=== PATIENT | female | born 1975 | race African-American/Black ===

== ENCOUNTER 2022-12-12 14:46 | Emergency (ER) | payer OTHER ==
--- OUTSIDE RECORDS SUMMARY | 2022-12-12 14:51 | XMS REPORT | Continuity of Care Document ---
:1975 Author Organization [facility] t Address [address] [facility] [address] [place] [address] Care Team Providers Name Role Phone No, Pcp [facility] Primary Care Physician Unavailable MONIKA Attending Clinician Unavailable Merrill GARCIA, Jacqueline Holloway Attending Clinician Yousuf Yoo Attending Clinician Ty Tabares Attending Clinician Sarkis Webber Attending Clinician HARPER MURRAY Attending Clinician Unavailable MONIKA Admitting Clinician Unavailable MD JACQUELINE GAMEZ Admitting Clinician Unavailable Yousuf Yoo Admitting Clinician Payers Payer Name Policy Type Policy Number Effective Date Expiration Date S ource Problems Condition Condition Condition Status Onset Resolution Last Treating Co mments Source Name Details Category Date Date Treatment Clinician Date [address], 12119, Diagnosis Active 2018-03-29 Me moria REFLUX REFLUX 7-13 11:28:00 l Active 00:00: Rah 02/23/[address] [place] [address] NA NA Active Diagnosis Active 2018-02-02 Memoria 01/03/201801-03 13:32:00 l 00:00: [address] [address], [id number], Diagnosis Active 2017-12-08 Jayjay barahonarisaurav REFLUX REFLUX 11-29 07:44:00 l Active 00:00: [place] 11/29/2017 00 [facility] BARIATRIC BARIATRIC Diagnosis Active 2017-12-22 Memoria FOLLOW UP FOLLOW UP 11-24 14:53:00 l Active 00:00: Rah 11/24/2017 00 [facility] BARIATRIC BARIATRIC Diagnosis Active 2017-11-24 Memoria FOLLOW UP FOLLOW UP 11-01 15:57:00 l Active 00:00: Rah 11/01/2017 00 [facility] MORBID MORBID Diagnosis Active 2017-11-01 Me olivera OBESITY-E6 OBESITY-E6 10-20 13:26:00 l 6.01/ 6.01/ 00:00: Rah K21.9 / K21.9 / 00 I10 I10 Active 10/20/2017 [facility] Body mass Body Problem 2018-10-18 Me olivera index mass index 12:08:22 l (BMI) (BMI) Rah 36.0-36.9, 36.0-36.9, adult adult 10/18/2018 [facility] Essential Essential Problem 2018-10-18 Memoria (primary) (primary) 12:08:22 l hypertensi hypertensi Trevor rmann on on 10/18/2018 [facility] Gastro-eso Gastro-es Problem 2018-10-18 Memoria phageal ophageal 12:08:22 l reflux reflux [place] disease disease without without esophagiti esophagiti s s 10/18/2018 [facility] Type 2 Type 2 Problem 2018-10-18 Vijay maximus diabetes diabetes 12:08:22 l mellitus mellitus Jeffery n without without complicati complicati ons ons 10/18/2018 [facility] Benign Benign Problem Resolve 2020-05-01 Or moria essential essential d 22:20:27 l hypertensi hypertensi He rmann on on (disorder) (disorder) Resolved Problem 05/01/2020 [facility] Diabetes Diabetes Problem Resolve 2020-05-01 Memoria mellitus mellitus d 22:20:27 l (disorder) (disorder) He rmann Resolved Problem 05/01/2020 [facility] History of History Problem Active 2020-05-01 Memoria - surgery of - 22:20:27 l (context-d surgery Kalpana nn ependent (context-d category) ependent category) Active Problem 05/01/2020 [facility] ILLNESS, ILLNESS, Diagnosis Active 2018-03-29 Memoria UNSPECIFIE UNSPECIFIE 11:28:00 l D D Active [place] [facility] History of Past Illness Condition Condition Condition Status Onset Resolution Last Treating Co mments Source Name Details Category Date Date Treatment Clinician Date Morbid Morbid Problem 2018-10-18 2018-10-18 Memoria (severe) (severe) 04-24 12:08:22 12:08:22 l obesity obesity 04:09: Rah due to due to 48 excess excess calories calories 04/24/2018 10/18/2018 [facility] Headache Headache Problem 2018-01-03 2018-01-03 Memoria 12/31/201712-31 00:29:39 00:29:39 l 01/03/2018 05:00: Jeffery [place] [address] [place] Allergies, Adverse Reactions, Alerts Allergy Allergy Status Severity Reaction(s) Onset Inactive Treating Comm ents Source Name Type Date Date Clinician No Known No Known Active Memori a Medicati Medicati l on on Rah Allergie Allergie s s Social History Social Habit Start Date Stop Date Quantity Comments Source Gender identity [facility] Tobacco use and 2022-02-02 2022-02-02 Smokeless Religion exposure 00:00:00 00:00:00 tobacco non-user Hospital Alcohol intake 2022-02-02 2022-02-02 Ex-drinker Religion 00:00:00 00:00:00 (finding) Hospital History of Social 2022-02-02 2022-02-[address] function 00:00:00 00:00:00 Hospital Sex Ass[birth year] At [birth year] Religion 00:00:00 00:00:00 Hospital Smoking Status Start Date Stop Date Source Social History [facility] Medications Ordered Filled Start Stop Current Ordering Indication Dosage Frequency Signature Comments Components Source Medication Medication Date Date Medication? Clinician (SIG) Name Name amoxicillin 2021- No 1{tbl} Q12H Take 1 M ethodi -pot 02-[address] clavulanate 00:00: 04:59 mouth Hosp aidan (AUGMENTIN) 00 :00 every 12 l 875-125 mg (twelve) per tablet hours for 7 days. Calcium Yes PO, BID, 0 Vijay maximus Citrate 04-15 Refill(s) l 18:51: multivitami 2019-0 Yes Daily, 0 Me moria n 902 Refill(s) l 18:51: Vitamin D3 Yes 0 Memoria 04-15 Refill(s) l 18:51: Metoclopram No 10 mg = 1 M emoria kayla 10 MG 8-18 tab, PO, l Oral Tablet 14:53: QID, PRN He rmann [Reglan] 00 dysphagia, X 7 day, # 28 tab, 0 Refill(s) pantoprazol Yes 40 mg = 1 M emoria e 40 MG 8-18 tab, PO, l Enteric 14:43: Daily, # Jeffery n Coated 00 30 tab, 1 Tablet Refill(s) [Protonix] Reglan No Notes: Memoria 8-18 (Same as: l 01:00: Reglan) Protonix No Notes: For Mem oria 03-30 IV push l 14:00: reconstitu te with 10 ml 0.9% sodium chloride and push over 2 minutes. (Same as: Protonix) Lactated No 1,000 mL, Vijay maximus Ringers 03-30 Rate: 80 l Injection 12:00: ml/hr, Jeffery n IV 1,000 mL 00 Infuse over: 12.5 hr, Route: IV, Dosing Weight 94.091 kg, Total Volume: 1,000, Start date: 03/30/18 7:00:00 CDT, Duration: 30 day, Stop date: 04/29/18 6:59:00 CDT, 2.12, m2 tramadol No 50 mg = 1 Vijay maximus hydrochlori 8-17 tab, PO, l de 50 MG 11:23: Q4H, PRN Kalpana nn Oral Tablet 00 Pain Score 1-3, X 3 day, # 20 tab, 0 Refill(s) Ketorolac No 4 days Memor ia 8-16 l 20:00: MEDICATION WASTE Product Size: 30 mg Product Wasted: ___ mg Ofirmev 2018-0 No Notes: Memoria 8-16 Infuse l 19:00: over 15 [place] 00 minutes Do not exceed 4gm/day of acetaminop hen MEDICATION WASTE Product Size: 1000 mg Product Wasted: ___ mg Morphine 2018-0 No 4 mg, Memoria 03-29 Route: l 15:03: IVP, [place] 00 Q5Min, Dosing Weight 94.091, kg, PRN Pain Score 7-10, Start date: 03/29/18 10:03:00 CDT, Duration: 3 doses or times, Stop date: Limited # of times Labetalol 2018-0 No 10 mg, Memori a 03-29 Route: l 15:03: IVP, [place] 00 Q5Min, Dosing Weight 94.091, kg, PRN Elevated BP, Start date: 03/29/18 10:03:00 CDT, Duration: 5 doses or times, Stop date: Limited # of times Flumazenil 2018-0 No 0.2 mg, Vijay maximus 03-29 Route: l 15:03: IVP, PRN, Rah 00 Dosing Weight 94.091, kg, PRN Benzodiaze pine Reversal, Initial dose, Start date: 03/29/18 10:03:00 CDT, Duration: 30 day, Stop date: 04/28/18 10:02:00 CDT Hydralazine 2018-0 No 10 mg, Vijay maximus 03-29 Route: l 15:03: IVP, Rah 00 Q20Min, Dosing Weight 94.091, kg, PRN Elevated BP, Start date: 03/29/18 10:03:00 CDT, Duration: 2 doses or times, Stop date: Limited # of times Hydromorpho 2018-0 No 0.5 mg, Mem oria ne 03-29 Route: l 15:03: IVP, Rah 00 Q5Min, Dosing Weight 94.091, kg, PRN Pain Score 7-10, Start date: 03/29/18 10:03:00 CDT, Duration: 4 doses or times, Stop date: Limited # of times Naloxone 2018-0 No 0.4 mg, Memori a 03-29 Route: l 15:03: IVP, [place] 00 Q2MIN, Dosing Weight 94.091, kg, PRN Narcotic Reversal, Start date: 03/29/18 10:03:00 CDT, Duration: 8 doses or times, Stop date: Limited # of times Ondansetron No 4 mg, Memor ia 03-29 Route: l 15:03: IVP, ONCE, Dosing Weight 94.091, kg, PRN Nausea & Vomiting, Start date: 03/29/18 10:03:00 CDT Lovenox 2017-0 No Notes: Memoria 03-29 (Same as: l 15:00: Lovenox) ketOROLAC No IM, ONCE Vijay maximus (ANES) 03-29 l 14:45: sugammadex No Route: IV, M emoria (ANES) 03-29 Drug form: l 14:45: SOLN, ONCE, Stop date: 03/29/18 9:45:00 CDT neostigmine No Route: IV, Memoria (ANES) 03-29 Drug form: l 14:45: INJ, ONCE, Stop date: 03/29/18 9:45:00 CDT meperidine No Route: IM, M emoria (ANES) 03-29 Drug form: l 14:45: INJ, ONCE, Stop date: 03/29/18 9:45:00 CDT glycopyrrol No Route: IV, Memoria ate (ANES) 03-29 Drug form: l 14:45: INJ, ONCE, Stop date: 03/29/18 9:45:00 CDT Labetalol No Notes: Memori a 03-29 (Same as: l 14:44: Normodyne, Trandate) Push over 2 minutes Give bolus over 2-3 minutes. Morphine No Notes: Memoria 03-29 (Same l 14:44: as:MORPhin e Sulfate) tramadol No Notes: Not Mem oria hydrochlori 03-29 to exceed l de 50 MG 14:44: 400mg/day. Her garcia Oral Tablet 00 (Same As: Ultram) Hydralazine No Notes: Vijay maximus 8-16 (Same as: l 14:44: Apresoline ) Push over 5 minutes Ondansetron No Notes: Vijay maximus 8-16 (Same as: l 14:44: Zofran) MEDICATION WASTE Product Size: 4 mg Product Wasted: ___ mg Promethazin No 12.5 mg, Me moria e 8-16 50 mL, l 14:44: Route: 00 IVPB, Drug form: SOLN, Q6H, Dosing Weight 94.091, kg, PRN Nausea & Vomiting, Start date: 03/29/18 9:44:00 CDT, Duration: 30 day, Stop date: 04/28/18 9:43:00 CDT Calcium No 1,000 mL, Memor ia Chloride 03-29 Rate: 150 l 0.0014 14:44: ml/hr, MEQ/ML / 00 Infuse Potassium over: 6.7 Chloride hr, Route: 0.004 IV, Dosing MEQ/ML / Weight Sodium 94.091 kg, Chloride Total 0.103 Volume: MEQ/ML / 1,000, Sodium Start Lactate date: 0.028 03/29/18 MEQ/ML 9:44:00 Injectable CDT, Stop Solution date: 03/30/18 7:00:00 CDT, 2.12, m2 ondansetron No Route: IV, Memoria (ANES) 8-16 Drug form: l 14:33: INJ, ONCE, Stop date: 03/29/18 9:33:00 CDT succinylcho No Route: IV, Memoria line (ANES) 8-16 Drug form: l 14:33: INJ, ONCE, Stop date: 03/29/18 9:33:00 CDT dexamethaso No Route: IV, Memoria ne (ANES) 8-16 Drug form: l 14:33: INJ, ONCE, Stop date: 03/29/18 9:33:00 CDT ceFAZolin No Route: IV, Me moria (ANES) 8-16 Drug form: l 14:18: INJ, ONCE, Stop date: 03/29/18 9:18:00 CDT rocuronium 2017-0 No Route: IV, M emoria (ANES) 03-29 Drug form: l 14:03: INJ, ONCE, Stop date: 03/29/18 9:03:00 CDT lidocaine 2018-0 No Route: IV, Me moria (ANES) 03-29 Drug form: l 14:03: INJ, ONCE, Stop date: 03/29/18 9:03:00 CDT propofol 2018-0 No Route: IV, Mem oria (ANES) 03-29 Drug form: l 14:03: INJ, ONCE, Stop date: 03/29/18 9:03:00 CDT midazolam 2017-0 No Route: IV, Me moria (ANES) 03-29 Drug form: l 13:58: SOLN, ONCE, Stop date: 03/29/18 8:58:00 CDT fentaNYL 0 No Route: IV, Mem oria (ANES) 03-29 Drug form: l 13:58: INJ, ONCE, Stop date: 03/29/18 8:58:00 CDT acetaminoph No Route: IV, Memoria en (ANES) 03-29 Drug form: l 10 mg 12:30: INJ, Start Jeffery n date: 03/29/18 7:30:00 CDT, Stop date: 03/29/18 8:30:00 CDT Sodium 0 No Route: IV, Memor ia Chloride 03-29 Total l 0.9% IV 12:30: Volume: Rah (ANES) 1000 00 1,000, mL Start date: 03/29/18 7:30:00 CDT, Stop date: 03/29/18 8:30:00 CDT Zofran ODT 0 No 4 mg, Memori a 03-29 Route: PO, l 12:12: Drug form: TABDIS, ONCE, Dosing Weight 94.091, kg, Start date: 03/29/18 7:12:00 CDT, Stop date: 03/29/18 7:12:00 CDT Bupivacaine 2017-0 No Notes: Vijay maximus Hydrochlori 03-29 (bupivacai l de 2.5 12:09: ne-epi [place] MG/ML / 00 0.25%-1:20 Epinephrine 0,000 30 0.005 MG/ML mL VL PF) Injectable Not for Solution use in continuous infusion. (Same As: Marcaine MPF w/Epi PF, Sensorcain e MPF w/Epi PF) ceFAZolin No Notes: Memori a 16 (Same As: l 06:00: Ancef) [place] 00 Inject direct IV slowly over 5 minutes. Cefazolin 1gm in sterile water 10mL Metformin No 1,000 mg = Me moria hydrochlori 03-26 1 tab, PO, l de 1000 MG 19:01: BID-Meals, H ermann Oral Tablet 00 # 30 tab, 0 Refill(s) Acetaminoph Yes 1 tab, PO, Memoria en 300 MG / 5-20 Q6H, PRN l Codeine 10:55: Pain, do Jeffery n Phosphate [address] 30 MG Oral or operate Tablet heavy [Tylenol machinery with while Codeine #3] taking this medication not to exceed 4000 mg acetaminop hen per day, # 12 tab, 0 Refill(s) Zofran No Notes: Memoria 5-20 (Same as: l 09:28: Zofran) MEDICATION WASTE Product Size: 4 mg Product Wasted: ___ mg Morphine No Notes: Memoria 5-20 (Same l 09:27: as:MORPhin 00 e Sulfate) Benadryl No Notes: Memoria 5-20 (Same as: l 08:06: Benadryl) Reglan No 10 mg, Memoria 5-20 Route: l 08:06: IVP, Drug form: INJ, ONCE, Dosing Weight 96.563, kg, Priority: STAT, Start date: 12/31/17 3:06:00 CDT, Stop date: 12/31/17 3:06:00 CDT Sodium No 1,000 mL, Memori a Chloride 5-20 1000 l 0.9% 08:06: ml/hr, Rah (Bolus) IV 00 Infuse Over: 1 hr, Route: IV, 1,000, Drug form: INJ, ONCE, Priority: STAT, Dosing Weight 96.563 kg, Start date: 12/31/17 3:06:00 CDT, Stop date: 12/31/17 3:06:00 CDT Saline 2017-0 No Notes: Memoria Flush 0.9% 5-20 (Same as: l 08:06: BD Rah 00 Posiflush) Vital Signs Vital Name Observation Time Observation Value Comments Source Systolic blood 2022-02-02 21:43:00 129 mm[Hg] [facility] pressure Diastolic blood 2022-02-02 21:43:00 76 mm[Hg] [facility] pressure Heart rate 2022-02-02 21:43:00 64 /min [facility] Oxygen saturation in 2022-02-02 21:43:00 100 /min [facility] Arterial blood by Pulse oximetry Body temperature 2022-02-02 19:39:12 36.94 Ernestine [facility] Respiratory rate 2022-02-02 19:39:12 18 /min [facility] Body height 2022-02-02 19:35:00 165.1 cm [facility] Body weight 2022-02-02 19:35:00 76.658 kg [facility] BMI 2022-02-02 19:35:00 28.12 kg/m2 [facility] Height 2020-04-15 18:48:00 162.56 cm [facility] Weight 2020-04-15 18:48:00 [facility] BMI Calculated 2020-04-15 18:48:00 Dipika esteban Rah Systolic (mm Hg) 2019-10-09 20:25:00 Vijay bassett Rah Diastolic (mm Hg) 2019-10-09 20:25:00 Mem orial [place] Heart Rate 2019-10-09 20:25:00 [facility] Height 2019-10-09 20:25:00 162.56 cm [facility] Weight 2019-10-09 20:25:00 [facility] BMI Calculated 2019-10-09 20:25:00 Dipika Holbrook Temperature Oral (F) 2018-03-31 16:20:00 98 F [facility] [place] Heart Rate 2018-03-31 16:20:00 [facility] [place] Respitory Rate 2018-03-31 16:20:00 Memori al [place] Systolic (mm Hg) 2018-03-31 16:20:00 Vijay rial [place] Diastolic (mm Hg) 2018-03-31 16:20:00 Mem orial Rah Systolic (mm Hg) 2018-03-31 12:45:00 Vijay rial [place] Diastolic (mm Hg) 2018-03-31 12:45:00 Mem orial Rah Heart Rate 2018-03-31 12:45:00 [facility] [place] Respitory Rate 2018-03-31 12:45:00 Memori al Rah Temperature Oral (F) 2018-03-31 12:45:00 98 F [facility] [place] Heart Rate 2018-03-31 09:00:00 [facility] Rah Temperature Oral (F) 2018-03-31 09:00:00 98.1 F [facility] [place] Respitory Rate 2018-03-31 09:00:00 Memori al [place] Systolic (mm Hg) 2018-03-31 09:00:00 Vijay rial [place] Diastolic (mm Hg) 2018-03-31 09:00:00 Mem orial Rah Weight 2018-03-26 18:57:00 [facility] [place] BMI Calculated 2018-03-26 18:57:00 Memori al Rah Height 2018-03-26 18:57:00 167.64 cm [facility] [place] Systolic (mm Hg) 2017-12-31 11:09:00 Vijay rial Rah Diastolic (mm Hg) 2017-12-31 11:09:00 Mem orial [place] Temperature Oral (F) 2017-12-31 11:09:00 98.8 F [facility] [place] Heart Rate 2017-12-31 11:09:00 [facility] [place] Respitory Rate 2017-12-31 11:09:00 Memori al [place] Heart Rate 2017-12-31 10:18:00 [facility] [place] Respitory Rate 2017-12-31 10:18:00 Memori al Rah Systolic (mm Hg) 2017-12-31 10:18:00 Vijay rial [place] Diastolic (mm Hg) 2017-12-31 10:18:00 Mem orial [place] Systolic (mm Hg) 2017-12-31 09:38:00 Vijay rial [place] Diastolic (mm Hg) 2017-12-31 09:38:00 Mem orial [place] Respitory Rate 2017-12-31 09:38:00 Dipika Holbrook Heart Rate 2017-12-31 09:38:00 Toño [place] BMI Calculated 2017-12-31 07:57:00 Dipika Holbrook Weight 2017-12-31 07:57:00 Toño Rah Temperature Oral (F) 2017-12-31 07:57:00 97.7 F Toño [place] Height 2017-12-31 07:57:00 167.64 cm [facility] Procedures Procedure Date / Time Performing Clinician Source Performed CT ABDOMEN PELVIS WO 2022-02-02 21:02:00 Jacqueline Gamez [facility] CONTRAST Jewel HCG QUALITATIVE, URINE 2022-02-02 20:40:00 Jacqueline Gamez [facility] SCREEN Jewel COMPREHENSIVE METABOLIC 2022-02-02 20:21:00 Jacqueline Gamez [facility] PANEL Jewel ESTIMATED GFR 2022-02-02 20:21:00 Jacqueline Gamez [facility] COVID-19 QUALITATIVE 2022-02-02 20:00:00 Jacqueline Gamez [facility] RT-PCR Jewel CBC WITH PLATELET AND 2022-02-02 20:00:00 Jacqueline Gamez [facility] DIFFERENTIAL Jewel URINALYSIS 2022-02-02 20:00:00 Jacqueline Gamez [facility]ital [place] Breast reduction, [facility] Kalpana nn bilateral Hysterectomy [facility] Laparoscopic sleeve [facility] Her garcia gastrectomy Plan of Care Planned Activity Planned Date Details Comments Source Future Scheduled 2022-12-12 COVID-19 VACCINE (#1) [facility] Test 14:48:56 [code = COVID-19 VACCINE (#1)] Future Scheduled 2022-12-12 Hepatitis C screening [facility] Test 14:48:56 (procedure) [code = 619606026] Future Scheduled 2022-12-12 Screening for [facility] Test 14:48:56 malignant neoplasm of cervix (procedure) [code = 523755474] Future Scheduled 2022-12-12 BREAST CANCER [facility] Test 14:48:56 SCREENING [code = BREAST CANCER SCREENING] Future Scheduled 2022-12-12 COLONOSCOPY SCREENING [facility] Test 14:48:56 [code = COLONOSCOPY SCREENING] Future Scheduled 2022-12-12 [facility]ACCINE [facility] 14:48:56 [code = INFLUENZA VACCINE] Encounters Start End Encounter Admission Attending Care Care Encounter Source Date/Time Date/Time Type Type Clinicians Facility Department ID 2022-02-23 2022-02-23 Outpatient MARCELINO PAUL [id number] 01:12:00 01:12:00 [place] 0713 da [facility] Program 2022-02-02 2022-02-02 Emergency Gamez, 1.2.840.1 [id number] Methodi 14:33:00 16:45:[address] [place] 3.430.2.7 Hospit a .[id number] l .8 2022-02-02 2022-02-02 Travel 1.2.840.1 [id number] [id number] Methodi 00:00:00 00:00:[address] 3.430.2.7 0.2.7.3.698 Ho spita .3.767912 084.8 l .8 2022-02-02 2022-02-02 Emergency GAMEZ, [facility] [id number] [place] 00:00:00 00:00:00 JACQUELINE 583 Maria lu 2020-04-28 2020-04-29 Between nullFlavo [id number] Memoria 21:31:11 21:31:11 Visit r Physicians 08 l Bariatric Jeffery n Surgery 2020-04-28 2020-04-29 Outpatient [facility] [id number] 16:31:11 16:31:11 08 2020-04-15 2020-04-16 [place] [id number] Memoria 20:00:00 04:59:59 r Physicians 05 rohith Gil n Surgery 2020-04-15 2020-04-15 Outpatient Naila [facility] [id number] 15:00:00 23:59:59 Yousuf Mejía 2020-04-15 2020-04-15 Outpatient DENNY DENNY [id number] Memoria 15:00:00 15:00:00 05 rohith Monreal 2020-04-09 2020-04-09 Ambulatory nullFlavo [id number] Memoria 19:00:00 19:00:00 Pre-Reg r Physicians 04 l Bariatric Jeffery n Surgery 2020-04-09 2020-04-09 Outpatient MHIE MHIE [id number] Memoria 14:00:00 14:00:00 04 l [place] 2020-04-09 2020-04-09 Outpatient Rayshawn [facility] [id number] 14:00:00 14:00:00 Ty 04 2019-10-09 2019-10-10 Outpatient nullFlavo [id number] Memoria 20:00:00 05:59:59 r Physicians 01 l Bariatric Jeffery n Surgery 2019-10-09 2019-10-09 Outpatient Naila [facility] [id number] 14:00:00 23:59:59 Tanyaradrex 01 Kym 2019-10-09 2019-10-09 Outpatient MHIE MHIE [id number] Memoria 14:00:00 14:00:00 01 l [place] 2019-05-10 2019-05-10 Outpatient MHIE MHIE [id number] Memoria 13:30:00 13:30:00 03 l [place] 2019-04-26 2019-04-26 Outpatient MHIE MHIE [id number] Memoria 11:00:00 11:00:00 02 l Rah 2019-04-03 2019-04-03 Outpatient MHIE MHIE [id number] Memoria 16:00:00 16:00:00 00 rohith Monreal 2018-03-29 2018-03-31 Inpatient nullFlavo [facility] [id number] Memoria 13:11:00 21:54:00 r Rah 06 [facility] 2018-03-29 2018-03-31 Outpatient Naila [facility] [id number] 08:11:00 16:54:00 Yousuf 06 Kym 2018-02-02 2018-02-03 Outpatient nullFlavo [facility] [id number] Memoria 18:24:00 04:59:00 r Rah 05 [facility] 2018-02-02 2018-02-02 Outpatient Naila [facility] [id number] 13:24:00 23:59:00 Tanyaxiomara 05 Kym 2017-12-31 2017-12-31 Emergency nullFlavo [facility] [id number] Memoria 07:51:00 11:12:00 r Rah 04 l [place] Kalpana 2017-12-31 2017-12-31 Outpatient Sarkis Webber [facility] [id number] 02:51:00 06:12:00 Josh 04 2017-12-22 2017-12-23 Outpatient nullFlavo [place] [id number] Memoria 19:45:00 04:59:00 r Rah 02 [facility] 2017-12-22 2017-12-22 Outpatient Naila, [facility] [id number] 14:45:00 23:59:00 Tanyaradzwa 02 Kym 2017-12-22 2017-12-22 Outpatient Ruthannse, [facility] [id number] 14:45:00 23:59:00 Tanyaradzwa 02 Kym 2017-11-24 2017-11-25 Outpatient nullFlavo [place] [id number] Memoria 20:49:00 04:59:00 r [place] 01 l [facility] 2017-11-24 2017-11-24 Outpatient Naila, [facility] [id number] 15:49:00 23:59:00 Tanyaradzwa 01 Kym 2017-11-01 2017-11-02 Outpatient nullFlavo [place] [id number] Memoria 18:19:00 04:59:00 r Rah 00 [facility] 2017-11-01 2017-11-01 [id number] 13:19:00 23:59:00 Tanyaradzwa 00 Kym Results Test Description Test Time Test Comments Results Result Comments Source SARS-CoV-2 (COVID-19) RNA [Presence] in Respiratory sp ecimen by 2022-02-03 00:40:10 ROMEO with probe detection Test Item Value Reference Range Interpretation Comme nts SARS-CoV-2 (COVID-19) RNA [Presence] in Respiratory specimen by Not detected ROMEO with probe detection (test code = 82633-0) Whether patient is employed in a healthcare setting (test code = No 79589-4) Whether the patient has symptoms related to condition of interest Y es (test code = 92738-4) Whether the patient was hospitalized for condition of interest No (test code = 28627-4) Whether the patient was admitted to intensive care unit (ICU) for N o condition of interest (test code = 24632-3) Whether patient resides in a congregate care setting (test code = N o 31830-9) status (test code = 21816-5) Unknown Date and time of symptom onset (test code = 59817-7) Unknown [facility] 07:55:00 Test Item Value Reference Range Interpretation Comments BUN (test code = BUN) 6 7-22 [id number] 07:55:00 Test Item Value Reference Range Interpretation Comments Platelet (test code = Platelet) 383 434-450 [id number] 07:55:00 Test Item Value Reference Range Interpretation Comments RDW (test code = RDW) 13.3 11.5-14.5 [id number] 07:55:00 Test Item Value Reference Range Interpretation Comments MPV (test code = MPV) 7.6 7.4-10.4 [id number] 07:55:00 Test Item Value Reference Range Interpretation Comments WBC (test code = WBC) 6.1 3.7-10.4 [id number] 07:55:00 Test Item Value Reference Range Interpretation Comments Hgb (test code = Hgb) 13.4 12.0-16.0 [facility] [id number] 07:55:00 Test Item Value Reference Range Interpretation Comments RBC (test code = RBC) 4.68 4.20-5.40 [facility]XallpnmORQRQLIHUL0504-16-99 07:55:00 Test Item Value Reference Range Interpretation Comments MCH (test code = MCH) 28.6 pg 27.0-31.0 [facility] CenterFeampuxROPSXOJPFF6357-68-60 07:55:00 Test Item Value Reference Range Interpretation Comments MCV (test code = MCV) 84.6 80.0-98.0 [facility] CenterBdaqfpkQQUQFKNEBS5546-06-66 07:55:00 Test Item Value Reference Range Interpretation Comments Hct (test code = Hct) 39.6 36.0-48.0 [facility] CenterLyytgcjBGXKCIIHLT0594-26-45 07:55:00 Test Item Value Reference Range Interpretation Comments MCHC (test code = MCHC) 33.8 32.0-36.0 [facility] CenterHtgatmbKGEYBJYVUC6522-77-76 07:55:00 Test Item Value Reference Range Interpretation Comments Lymphocytes # (test code = Lymphocytes 1.4 1.0-5.5 #) [facility] CenterPhnfmplEPHYGZYTIS7890-57-55 07:55:00 Test Item Value Reference Range Interpretation Comments Monocytes # (test code 0.6 See_Comment [Aut omated message] The = Monocytes #) system which generated this result tra nsmitted reference range : <=0.8. The reference r zachary was not used to int erpret this result as normal/abnormal . [facility] CenterAdxoqsiVEMVJLZZCD7491-33-97 07:55:00 Test Item Value Reference Range Interpretation Comments Neutrophils # (test code = Neutrophils 4.0 1.5-8.1 #) [facility] CenterNobsmfsJEGDIEWERY2263-20-14 07:55:00 Test Item Value Reference Range Interpretation Comments Basophils (test code = 0.6 See_Comment [Aut omated message] The Basophils) system which ge nerated this result tra nsmitted reference range : <=1.0. The reference r zachary was not used to int erpret this result as normal/abnormal . [facility] CenterFbkwuvcACDUXLXNXB0232-33-00 07:55:00 Test Item Value Reference Range Interpretation Comments Eosinophils (test code = 0.4 See_Comment [A utomated message] The Eosinophils) system which ge nerated this result tra nsmitted reference range : <=4.0. The reference r zachary was not used to int erpret this result as normal/abnormal . [facility] CenterRmxehtzCXUKVXLFKL9724-67-45 07:55:00 Test Item Value Reference Range Interpretation Comments Monocytes (test code = Monocytes) 10.1 2.0-12.0 [facility] CenterGelqmmkQQYGZUFTDY5175-09-91 07:55:00 Test Item Value Reference Range Interpretation Comments Lymphocytes (test code = Lymphocytes) 22.6 20.0-40.0 [facility] CenterZdkzzwyLFQQEYIVKV4211-83-22 07:55:00 Test Item Value Reference Range Interpretation Comments Segs (test code = Segs) 66.3 45.0-75.0 [facility]smucKYRMQLPQGLFD3838-95-72 07:55:00 Test Item Value Reference Range Interpretation Comments AGAP (test code = AGAP) 15.9 10.0-20.0 [facility]AkufqzqGVVUETXYNSBQ7521-45-74 07:55:00 Test Item Value Reference Range Interpretation Comments eGFR (test code = eGFR) 104 [facility]QzrqrclXBPNQDIIIAUM2542-13-90 07:55:00 Test Item Value Reference Range Interpretation Comments Creatinine Lvl (test code = Creatinine 0.80 0.50-1.40 Lvl) [facility]TisqfeuOVENSSQELMVE4736-88-61 07:55:00 Test Item Value Reference Range Interpretation Comments Glucose Lvl (test code = Glucose Lvl) 93 70-99 [facility]TurbbycYNSHDZDASYJY4692-72-93 07:55:00 Test Item Value Reference Range Interpretation Comments Sodium Lvl (test code = Sodium Lvl) 140 135-145 [facility]PknitvhXVUMBXPGWDQH4779-33-30 07:55:00 Test Item Value Reference Range Interpretation Comments Potassium Lvl (test code = Potassium 3.9 3.5-5.1 Lvl) [facility]OvsiarwKASJLCBWJSIW8849-94-33 07:55:00 Test Item Value Reference Range Interpretation Comments Calcium Lvl (test code = Calcium Lvl) 8.9 8.5-10.5 [facility]OhzitjqQDNCYZTPNJJN6368-07-94 07:55:00 Test Item Value Reference Range Interpretation Comments Chloride Lvl (test code = Chloride Lvl) 103 95-109 [facility]KecpxjxADVBRNYZWTXB8562-03-14 07:55:00 Test Item Value Reference Range Interpretation Comments CO2 (test code = CO2) 25 24-32 [facility]AijbkpzPNYNMUBLILYD2980-83-45 09:08:00 Test Item Value Reference Range Interpretation Comments CO2 (test code = CO2) 24 -32 [facility] HospitalYhvjiodBKTHHBNTOKZD5667-65-86 09:08:00 Test Item Value Reference Range Interpretation Comments Creatinine Lvl (test code = Creatinine 0.86 0.50-1.40 Lvl) [facility] HospitalTjzehesBJUURIPILVZA1732-61-29 09:08:00 Test Item Value Reference Range Interpretation Comments Calcium Lvl (test code = Calcium Lvl) 8.8 8.5-10.5 [facility]LemqfizTASWEAATWJTY4815-42-52 09:08:00 Test Item Value Reference Range Interpretation Comments eGFR (test code = eGFR) 96 [facility] HospitalBchuklrMWJYVEKAFYEP6169-39-50 09:08:00 Test Item Value Reference Range Interpretation Comments Glucose Lvl (test code = Glucose Lvl) 123 70-99 [facility] HospitalBphqoyjOXZZWQRQJOWS7201-50-12 09:08:00 Test Item Value Reference Range Interpretation Comments BUN (test code = BUN) 6 7-22 [facility] HospitalLwyejabZUSPBGTUVJWT2232-79-03 09:08:00 Test Item Value Reference Range Interpretation Comments Sodium Lvl (test code = Sodium Lvl) 141 135-145 [facility] HospitalVbmxgfwHXZCZQRUDRUK5310-79-99 09:08:00 Test Item Value Reference Range Interpretation Comments Chloride Lvl (test code = Chloride Lvl) 103 95-109 [facility] HospitalTygnssmQYZWWEBHYECP1173-73-19 09:08:00 Test Item Value Reference Range Interpretation Comments Potassium Lvl (test code = Potassium 4.0 3.5-5.1 Lvl) [facility] HospitalRwlivreCHQSQAIYXHGH9197-72-00 09:08:00 Test Item Value Reference Range Interpretation Comments AGAP (test code = AGAP) 18.0 10.0-20.0 [facility] CenterKtwyfhsXWAUHPXQDS3577-93-55 09:08:00 Test Item Value Reference Range Interpretation Comments Basophils (test code = 0.2 See_Comment [Aut omated message] The Basophils) system which ge nerated this result tra nsmitted reference range : <=1.0. The reference r zachary was not used to int erpret this result as normal/abnormal . [facility] CenterPxswovuVZAEODGNRV4133-94-63 09:08:00 Test Item Value Reference Range Interpretation Comments Monocytes (test code = Monocytes) 10.5 2.0-12.0 [facility] CenterLoxjaztRIAOBOJSYK1401-77-06 09:08:00 Test Item Value Reference Range Interpretation Comments Eosinophils (test code = 0.1 See_Comment [A utomated message] The Eosinophils) system which ge nerated this result tra nsmitted reference range : <=4.0. The reference r zachary was not used to int erpret this result as normal/abnormal . [facility] CenterEreidufOANQLPIKNT8102-62-16 09:08:00 Test Item Value Reference Range Interpretation Comments Lymphocytes # (test code = Lymphocytes 1.0 1.0-5.5 #) [facility] CenterPmaxejhKRYASDIVQO1487-54-49 09:08:00 Test Item Value Reference Range Interpretation Comments Neutrophils # (test code = Neutrophils 7.0 1.5-8.1 #) [facility] CenterAmodzdmTCAMSPJNYC0293-80-92 09:08:00 Test Item Value Reference Range Interpretation Comments Monocytes # (test code 0.9 See_Comment [Aut omated message] The = Monocytes #) system which generated this result tra nsmitted reference range : <=0.8. The reference r zachary was not used to int erpret this result as normal/abnormal . [facility] CenterFxdcmanFLDZWYYDMF1484-82-15 09:08:00 Test Item Value Reference Range Interpretation Comments Segs (test code = Segs) 78.4 45.0-75.0 [facility] CenterCcrhbyrMQOUNXSQEZ9840-52-74 09:08:00 Test Item Value Reference Range Interpretation Comments Lymphocytes (test code = Lymphocytes) 10.8 20.0-40.0 [facility] CenterXlssuxnDDSOJXDERF9341-32-63 09:08:00 Test Item Value Reference Range Interpretation Comments MPV (test code = MPV) 7.4 7.4-10.4 [facility] CenterVljofsgWFHHMPBTLR6697-52-41 09:08:00 Test Item Value Reference Range Interpretation Comments RDW (test code = RDW) 13.6 11.5-14.5 [facility] CenterMzhillpOTHHLZGUSF2842-16-24 09:08:00 Test Item Value Reference Range Interpretation Comments Platelet (test code = Platelet) 361 133-450 [facility] CenterWgueoslFJFEDWDKQD5168-04-00 09:08:00 Test Item Value Reference Range Interpretation Comments WBC (test code = WBC) 8.9 3.7-10.4 [facility] CenterRnluuupPKJKTDCWQG2346-38-04 09:08:00 Test Item Value Reference Range Interpretation Comments MCHC (test code = MCHC) 34.3 32.0-36.0 [facility] CenterNbazjgjUBXKQCBKDI7859-42-76 09:08:00 Test Item Value Reference Range Interpretation Comments MCH (test code = MCH) 28.9 pg 27.0-31.0 [facility] CenterQsicnhxMSBNRRCPHZ6226-85-71 09:08:00 Test Item Value Reference Range Interpretation Comments MCV (test code = MCV) 84.0 80.0-98.0 [facility] CenterTrknztsXUDMEUXWBF6601-81-75 09:08:00 Test Item Value Reference Range Interpretation Comments Hgb (test code = Hgb) 12.9 12.0-16.0 [facility] HospitalYoetajdCVLDZWBCQB4018-52-66 09:08:00 Test Item Value Reference Range Interpretation Comments Hct (test code = Hct) 37.7 36.0-48.0 [facility] HospitalUvuoszrYSHNJMNHCW5157-78-22 09:08:00 Test Item Value Reference Range Interpretation Comments RBC (test code = RBC) 4.49 4.20-5.40 [facility] [employer] [id number] 19:14:00 Test Item Value Reference Range Interpretation Comments Antibody Scrn (test Negative (03/26/18 2:14 code = Antibody Scrn) PM) [facility] [employer] [facility] [id number] 19:14:00 Test Item Value Reference Range Interpretation Comments ABO/Rh (test code = ABO/Rh) O POS [facility] [employer] [id number] 19:14:00 Test Item Value Reference Range Interpretation Comments VITAMIN B1 (THIAMINE) WHOLE BLOOD (test 88.0 66.5-200.0 code = VITAMIN B1 (THIAMINE) WHOLE BLOOD) [facility] [id number] 19:14:00 Test Item Value Reference Range Interpretation Comments Vitamin D, 25-OH, Total (test code = 16.5 30.0-100.0 Vitamin D, 25-OH, Total) [facility] [employer] [id number] 19:14:00 Test Item Value Reference Range Interpretation Comments eGFR (test code = eGFR) [address] [facility] [address] [facility] HospitalRE[facility] [id number] 19:14:00 Test Item Value Reference Range Interpretation Comments Albumin Lvl (test code = Albumin Lvl) 3.9 3.5-5.0 [facility] [employer] [id number] 19:14:00 Test Item Value Reference Range Interpretation Comments BUN (test code = BUN) 8 7-[address] [facility] [address] [facility] [id number] 19:14:00 Test Item Value Reference Range Interpretation Comments Creatinine Lvl (test code = Creatinine 0.93 0.50-1.40 Lvl) [facility] [id number] 19:14:00 Test Item Value Reference Range Interpretation Comments CO2 (test code = CO2) 27 24-32 [facility]QOARB8521-34-17 19:14:00 Test Item Value Reference Range Interpretation Comments Glucose Lvl (test code = Glucose Lvl) 105 70-99 [facility]2018-08-13 19:14:00 Test Item Value Reference Range Interpretation Comments ALT (test code = ALT) 26 See_Comment [Auto mated message] The system which ge nerated this result transmit edy reference range : <=65. The reference range was not used to interpr et this result as sydney l/abnormal. [place] 458628-08-13 19:14:00 Test Item Value Reference Range Interpretation Comments AST (test code = AST) 16 See_Comment [Auto mated message] The system which ge nerated this result transmit edy reference range : <=37. The reference range was not used to interpr et this result as sydney l/abnormal. [place] 458628-08-13 19:14:00 Test Item Value Reference Range Interpretation Comments Potassium Lvl (test code = Potassium 3.8 3.5-5.1 Lvl) [place] 458628-08-13 19:14:00 Test Item Value Reference Range Interpretation Comments Calcium Lvl (test code = Calcium Lvl) 9.2 8.5-10.5 [place] 458628-08-13 19:14:00 Test Item Value Reference Range Interpretation Comments Chloride Lvl (test code = Chloride Lvl) 104 95-109 [place] 458628-08-13 19:14:00 Test Item Value Reference Range Interpretation Comments Sodium Lvl (test code = Sodium Lvl) 142 135-145 [facility]2018-08-13 19:14:00 Test Item Value Reference Range Interpretation Comments Bili Total (test code = Bili Total) 0.5 0.2-1.3 [place] 458628-08-13 19:14:00 Test Item Value Reference Range Interpretation Comments Alk Phos (test code = Alk Phos) 91 39-136 [facility]2018-08-13 19:14:00 Test Item Value Reference Range Interpretation Comments Total Protein (test code = Total 7.7 6.4-8.4 Protein) [place] 458628-08-13 19:14:00 Test Item Value Reference Range Interpretation Comments B/C Ratio (test code = B/C Ratio) 9 1 6-25 [facility]2018-08-13 19:14:00 Test Item Value Reference Range Interpretation Comments AGAP (test code = AGAP) 14.8 10.0-20.0 [facility]2018-08-13 19:14:00 Test Item Value Reference Range Interpretation Comments Globulin (test code = Globulin) 3.8 2.7-4.2 [facility]2018-08-13 19:14:00 Test Item Value Reference Range Interpretation Comments A/G Ratio (test code = A/G Ratio) 1.0 1 0.7-1.6 [facility] CenterFsczqwtAAYGNFGDRU6543-11-92 19:14:00 Test Item Value Reference Range Interpretation Comments INR (test code = INR) 1.05 1 0.85-1.17 [facility] CenterLttlagvQMTRYUUTRZ4606-03-05 19:14:00 Test Item Value Reference Range Interpretation Comments PTT (test code = PTT) 30.3 s 22.9-35.8 [facility] CenterSzcgbnuUKETGXGXXE5193-81-57 19:14:00 Test Item Value Reference Range Interpretation Comments PT (test code = PT) 13.7 s 12.0-14.7 [facility] CenterScolbffPTTYAVWWCX8739-52-68 19:14:00 Test Item Value Reference Range Interpretation Comments MPV (test code = MPV) 7.4 7.4-10.4 [facility] CenterOcjikorIMNWQKUISM7298-82-82 19:14:00 Test Item Value Reference Range Interpretation Comments Platelet (test code = Platelet) 414 133-450 [facility] CenterSnddczmYFHNYYQDZS1049-35-36 19:14:00 Test Item Value Reference Range Interpretation Comments RDW (test code = RDW) 13.3 11.5-14.5 [facility] CenterSddxwljCZQYTZODPL6353-85-84 19:14:00 Test Item Value Reference Range Interpretation Comments MCH (test code = MCH) 28.6 pg 27.0-31.0 [facility] CenterRuorasxAGGDVGAEEY3206-62-56 19:14:00 Test Item Value Reference Range Interpretation Comments MCHC (test code = MCHC) 34.0 32.0-36.0 [facility] CenterDndnmaiLDPMYDWYWV7336-05-79 19:14:00 Test Item Value Reference Range Interpretation Comments MCV (test code = MCV) 84.4 80.0-98.0 [facility] CenterXjrmymuSIJMQLDKTN2970-65-40 19:14:00 Test Item Value Reference Range Interpretation Comments Hgb (test code = Hgb) 14.4 12.0-16.0 [facility] CenterShsmwwxIWSOEZGGBZ8853-88-92 19:14:00 Test Item Value Reference Range Interpretation Comments Hct (test code = Hct) 42.5 36.0-48.0 [facility] CenterKzqnsysWNWHYILCWL6514-36-54 19:14:00 Test Item Value Reference Range Interpretation Comments RBC (test code = RBC) 5.04 4.20-5.40 [facility] CenterOqlhhbgTMAUYMWJGR2279-40-87 19:14:00 Test Item Value Reference Range Interpretation Comments WBC (test code = WBC) 5.8 3.7-10.4 [facility] CenterBgwfggvHPQMVAOQZK3458-84-61 19:14:00 Test Item Value Reference Range Interpretation Comments Eosinophils # (test code 0.1 See_Comment [A utomated message] The = Eosinophils #) system [facility] generated this result tra nsmitted reference range : <=0.5. The reference r zachary was not used to int erpret this result as normal/abnormal . [facility] CenterAnecvasVHWXOFXHDE8097-37-43 19:14:00 Test Item Value Reference Range Interpretation Comments Lymphocytes # (test code = Lymphocytes 1.7 1.0-5.5 #) [facility] CenterMlagfhxUDSEOIPTOT1493-21-90 19:14:00 Test Item Value Reference Range Interpretation Comments Monocytes # (test code 0.5 See_Comment [Aut omated message] The = Monocytes #) system which generated this result tra nsmitted reference range : <=0.8. The reference r zachary was not used to int erpret this result as normal/abnormal . [facility] CenterUpkycvjPOXPVLUEPN1358-70-06 19:14:00 Test Item Value Reference Range Interpretation Comments Lymphocytes (test code = Lymphocytes) 28.9 20.0-40.0 [facility] CenterGwrlsjuRGMHEIMXIU7922-31-66 19:14:00 Test Item Value Reference Range Interpretation Comments Monocytes (test code = Monocytes) 9.1 2.0-12.0 [facility] CenterFoahpleGYSDYKMIDA1205-14-39 19:14:00 Test Item Value Reference Range Interpretation Comments Segs (test code = Segs) 59.2 45.0-75.0 [facility] CenterGrrccriDEDTSQQCOQ0771-48-66 19:14:00 Test Item Value Reference Range Interpretation Comments Basophils (test code = 0.6 See_Comment [Aut omated message] The Basophils) system which ge nerated this result tra nsmitted reference range : <=1.0. The reference r zachary was not used to int erpret this result as normal/abnormal . [facility] CenterHvqmdlbZYCRMLZSFK8345-90-35 19:14:00 Test Item Value Reference Range Interpretation Comments Eosinophils (test code = 2.2 See_Comment [A utomated message] The Eosinophils) system which ge nerated this result tra nsmitted reference range : <=4.0. The reference r zachary was not used to int erpret this result as normal/abnormal . [facility] CenterMyzvlsgWJJYCUYUTT7533-16-25 19:14:00 Test Item Value Reference Range Interpretation Comments Neutrophils # (test code = Neutrophils 3.4 1.5-8.1 #) [facility] AND [id number] 19:05:00 Test Item Value Reference Range Interpretation Comments Micro? (test code = Not Indicated Micro?) *NA*(03/26/18 2:05 PM) [facility] AND [id number] 19:05:00 Test Item Value Reference Range Interpretation Comments UA Ketones (test code = UA Ketones) Negative [facility] AND [id number] 19:05:00 Test Item Value Reference Range Interpretation Comments UA Bacteria (test code = UA Occasional /HPF Bacteria) [facility] AND [id number] 19:05:00 Test Item Value Reference Range Interpretation Comments UA WBC (test code = 1 See_Comment [Automa edy message] The UA WBC) system which ge nerated this result transmit edy reference range : <=5. The reference range was not used to interpr et this result as sydney l/abnormal. [facility] AND [id number] 19:05:00 Test Item Value Reference Range Interpretation Comments UA RBC (test code = no gt See_Comment [Automa edy message] The UA RBC) system which ge nerated this result transmit edy reference range : <=2. The reference range was not used to interpr et this result as sydney l/abnormal. [facility] AND [id number] 19:05:00 Test Item Value Reference Range Interpretation Comments UA Mucus (test code = UA Mucus) Moderate /LPF [facility] AND [id number] 19:05:00 Test Item Value Reference Range Interpretation Comments UA Sq Epi (test code = UA Sq Occasional /LPF Epi) [facility] AND [id number] 19:05:00 Test Item Value Reference Range Interpretation Comments UA Leuk Est (test Negative (03/26/18 2:05 code = UA Leuk Est) PM) [facility] AND [id number] 19:05:00 Test Item Value Reference Range Interpretation Comments UA Urobilinogen (test code = UA 2.0 0.1-1.0 Urobilinogen) [facility] AND [id number] 19:05:00 Test Item Value Reference Range Interpretation Comments UA Nitrite (test code Negative (03/26/18 2:05 = UA Nitrite) PM) [facility] AND [id number] 19:05:00 Test Item Value Reference Range Interpretation Comments UA Blood (test code = Negative (03/26/18 2:05 UA Blood) PM) [facility] AND [id number] 19:05:00 Test Item Value Reference Range Interpretation Comments UA pH (test code = UA pH) 5.0 1 5.0-8.0 [facility] AND [id number] 19:05:00 Test Item Value Reference Range Interpretation Comments UA Bili (test code = Negative *NA*(03/26/18 UA Bili) 2:05 PM) [facility] AND [id number] 19:05:00 Test Item Value Reference Range Interpretation Comments UA Glucose (test code = UA Negative mg/dL Glucose) [facility] AND [id number] 19:05:00 Test Item Value Reference Range Interpretation Comments UA Protein (test code = UA Negative mg/dL Protein) [facility] AND [id number] 19:05:00 Test Item Value Reference Range Interpretation Comments UA Color (test code = Yellow *NA*(03/26/18 UA Color) 2:05 PM) [facility] AND [id number] 19:05:00 Test Item Value Reference Range Interpretation Comments UA Spec Grav (test code = UA Spec 1.023 1 Grav) [facility] AND [id number] 19:05:00 Test Item Value Reference Range Interpretation Comments UA Turbidity (test code = Clear (03/26/18 2:05 UA Turbidity) PM) [facility] AND [id number] 10:29:00 Test Item Value Reference Range Interpretation Comments UA Ketones (test code = UA Trace mg/dL Ketones) [facility] AND [id number] 10:29:00 Test Item Value Reference Range Interpretation Comments UA Bili (test code = Negative *NA*(12/31/17 UA Bili) 5:29 AM) [facility] AND [id number] 10:29:00 Test Item Value Reference Range Interpretation Comments UA RBC (test code = 1 See_Comment [Automa edy message] The UA RBC) system which ge nerated this result transmit edy reference range : <=2. The reference range was not used to interpr et this result as sydney l/abnormal. [facility] AND [id number] 10:29:00 Test Item Value Reference Range Interpretation Comments UA Hyal Cast (test 1 See_Comment [Automat ed message] The code = UA Hyal Cast) system which generated this result transmit edy reference range : <=2. The reference range was not used to interpr et this result as sydney l/abnormal. [facility] AND [id number] 10:29:00 Test Item Value Reference Range Interpretation Comments UA Mucus (test code = UA Mucus) Few /LPF [facility] AND [id number] 10:29:00 Test Item Value Reference Range Interpretation Comments UA Blood (test code = Negative (12/31/17 5:29 UA Blood) AM) [facility] AND [id number] 10:29:00 Test Item Value Reference Range Interpretation Comments UA Urobilinogen (test code = UA 2.0 0.1-1.0 Urobilinogen) [facility] AND [id number] 10:29:00 Test Item Value Reference Range Interpretation Comments UA Sq Epi (test code = UA Sq Epi) Few /LPF [facility] AND [id number] 10:29:00 Test Item Value Reference Range Interpretation Comments UA Leuk Est (test Negative (12/31/17 5:29 code = UA Leuk Est) AM) [facility] AND [id number] 10:29:00 Test Item Value Reference Range Interpretation Comments UA WBC (test code = 2 See_Comment [Automa edy message] The UA WBC) system which ge nerated this result transmit edy reference range : <=5. The reference range was not used to interpr et this result as sydney l/abnormal. [facility] AND [id number] 10:29:00 Test Item Value Reference Range Interpretation Comments UA Nitrite (test code Negative (12/31/17 5:29 = UA Nitrite) AM) [facility] [id number] 10:29:00 Test Item Value Reference Range Interpretation Comments UA Spec Grav (test code = UA Spec 1.020 1 Grav) [facility] [id number] 10:29:00 Test Item Value Reference Range Interpretation Comments UA Color (test code = Light Yellow UA Color) *NA*(12/31/17 5:29 AM) [facility] AND [id number] 10:29:00 Test Item Value Reference Range Interpretation Comments UA Turbidity (test code = Clear (12/31/17 5:29 UA Turbidity) AM) [facility] AND [id number] 10:29:00 Test Item Value Reference Range Interpretation Comments UA pH (test code = UA pH) 5.0 1 5.0-8.0 [facility] [id number] 10:29:00 Test Item Value Reference Range Interpretation Comments UA Protein (test code = UA Negative mg/dL Protein) [facility] [id number] 10:29:00 Test Item Value Reference Range Interpretation Comments UA Glucose (test code = UA Glucose) 150 mg/dL [facility] [id number] 08:18:00 Test Item Value Reference Range Interpretation Comments CK MB (test code = CK MB) 1.8 0.5-3.6 [facility] [id number] 08:18:00 Test Item Value Reference Range Interpretation Comments Total CK (test code = Total CK) 301 12-191 [facility] [id number] 08:18:00 Test Item Value Reference Range Interpretation Comments Troponin-I (test code no gt See_Comment [Auto mated message] The = Troponin-I) system which g enerated this result transmit edy reference range : <=0.40. The reference r zachary was not used to interpr et this result as sydney l/abnormal. [facility] [employer] [id number] 08:18:00 Test Item Value Reference Range Interpretation Comments CK MB Index (test 0.6 1 See_Comment [Automate d message] The code = CK MB Index) system w [facility] generated this result transmit edy reference range : <=2.5. The reference range was not used to interpr et this result as sydney l/abnormal. [facility] [employer] [id number] 08:18:00 Test Item Value Reference Range Interpretation Comments eGFR (test code = eGFR) 88 [facility] [employer] [id number] 08:18:00 Test Item Value Reference Range Interpretation Comments CO2 (test code = CO2) 26 24-32 [facility] [employer] [id number] 08:18:00 Test Item Value Reference Range Interpretation Comments Calcium Lvl (test code = Calcium Lvl) 9.2 8.5-10.5 [facility] [employer] [id number] 08:18:00 Test Item Value Reference Range Interpretation Comments Potassium Lvl (test code = Potassium 4.0 3.5-5.1 Lvl) [facility] [employer] [id number] 08:18:00 Test Item Value Reference Range Interpretation Comments Chloride Lvl (test code = Chloride Lvl) 105 95-109 [facility] [employer] [id number] 08:18:00 Test Item Value Reference Range Interpretation Comments Total Protein (test code = Total 7.4 6.4-8.4 Protein) [facility] [employer] [id number] 08:18:00 Test Item Value Reference Range Interpretation Comments A/G Ratio (test code = A/G Ratio) 1.1 1 0.7-1.6 [facility] [employer] [id number] 08:18:00 Test Item Value Reference Range Interpretation Comments Bili Total (test code = Bili Total) 0.2 0.2-1.3 [facility] [employer] [id number] 08:18:00 Test Item Value Reference Range Interpretation Comments AST (test code = AST) 16 See_Comment [Auto mated message] The system which ge nerated this result transmit edy reference range : <=37. The reference range was not used to interpr et this result as sydney l/abnormal. [facility]2018-05-20 08:18:00 Test Item Value Reference Range Interpretation Comments Alk Phos (test code = Alk Phos) 88 39-136 [facility]2018-05-20 08:18:00 Test Item Value Reference Range Interpretation Comments Albumin Lvl (test code = Albumin Lvl) 3.8 3.5-5.0 [facility]2018-05-20 08:18:00 Test Item Value Reference Range Interpretation Comments ALT (test code = ALT) 28 See_Comment [Auto mated message] The system which ge nerated this result transmit edy reference range : <=65. The reference range was not used to interpr et this result as sydney l/abnormal. [facility]2018-05-20 08:18:00 Test Item Value Reference Range Interpretation Comments Globulin (test code = Globulin) 3.6 2.7-4.2 [facility]2018-05-20 08:18:00 Test Item Value Reference Range Interpretation Comments AGAP (test code = AGAP) 14.0 10.0-20.0 [facility]2018-05-20 08:18:00 Test Item Value Reference Range Interpretation Comments B/C Ratio (test code = B/C Ratio) 13 1 6-25 [facility]2018-05-20 08:18:00 Test Item Value Reference Range Interpretation Comments Creatinine Lvl (test code = Creatinine 0.92 0.50-1.40 Lvl) [facility]2018-05-20 08:18:00 Test Item Value Reference Range Interpretation Comments Sodium Lvl (test code = Sodium Lvl) 141 135-145 [facility]2018-05-20 08:18:00 Test Item Value Reference Range Interpretation Comments Glucose Lvl (test code = Glucose Lvl) 184 70-99 [facility]2018-05-20 08:18:00 Test Item Value Reference Range Interpretation Comments BUN (test code = BUN) 12 7-22 [facility]CXBYC[facility]T2636[facility]32-42 08:18:00 Test Item Value Reference Range Interpretation Comments PTT (test code = PTT) 27.6 s 22.9-35.8 [facility]QjiogqrLBUKIGHKSR3911-38-22 08:18:00 Test Item Value Reference Range Interpretation Comments PT (test code = PT) 13.6 s 12.0-14.7 [facility] CenterQfbbresUABGAXBVHG5148-64-14 08:18:00 Test Item Value Reference Range Interpretation Comments INR (test code = INR) 1.04 1 0.85-1.17 [facility] CenterItomuswYMTEYHIQLP1178-20-30 08:18:00 Test Item Value Reference Range Interpretation Comments Platelet (test code = Platelet) 427 133-450 [facility]DiapdwlPKQLQFAMIC4029-73-56 08:18:00 Test Item Value Reference Range Interpretation Comments MPV (test code = MPV) 7.4 7.4-10.4 [facility]IjcdctuJOSESQLXOH2756-46-72 08:18:00 Test Item Value Reference Range Interpretation Comments MCH (test code = MCH) 29.0 pg 27.0-31.0 [facility] CenterFhfrmamKTTFVDTQCB1132-29-46 08:18:00 Test Item Value Reference Range Interpretation Comments MCHC (test code = MCHC) 34.2 32.0-36.0 [facility] CenterFzkvchhHHRDQYWOTH6732-95-23 08:18:00 Test Item Value Reference Range Interpretation Comments Hct (test code = Hct) 39.2 36.0-48.0 [facility] CenterRpkjewhSMSCCEIJUB3395-03-34 08:18:00 Test Item Value Reference Range Interpretation Comments MCV (test code = MCV) 84.9 80.0-98.0 [facility] [id number] 08:18:00 Test Item Value Reference Range Interpretation Comments RDW (test code = RDW) 13.6 11.5-14.5 [facility] CenterIbkhnszMYONRAQPCS6342-76-87 08:18:00 Test Item Value Reference Range Interpretation Comments WBC (test code = WBC) 6.4 3.7-10.4 [facility] CenterCmaojitPJNKDZWNEG7864-35-71 08:18:00 Test Item Value Reference Range Interpretation Comments RBC (test code = RBC) 4.61 4.20-5.40 [facility] CenterYktfseoCBKNSTANRE9490-06-21 08:18:00 Test Item Value Reference Range Interpretation Comments Hgb (test code = Hgb) 13.4 12.0-16.0 [facility] CenterShgcldaRXCRGZUWZN5173-05-46 08:18:00 Test Item Value Reference Range Interpretation Comments Segs (test code = Segs) 66.3 45.0-75.0 [facility] CenterPwzhmamAHNIXZSDIQ0368-60-71 08:18:00 Test Item Value Reference Range Interpretation Comments Lymphocytes (test code = Lymphocytes) 22.3 20.0-40.0 [facility] CenterFdigrveUQSVEHZHNP6049-04-19 08:18:00 Test Item Value Reference Range Interpretation Comments Lymphocytes # (test code = Lymphocytes 1.4 1.0-5.5 #) [facility] CenterKgaqnoyGQFEXHAFQP6333-71-59 08:18:00 Test Item Value Reference Range Interpretation Comments Segs-Bands # (test code = Segs-Bands #) 4.2 1.5-8.1 [facility] CenterEcanrphDTOSHSMDHN2254-21-21 08:18:00 Test Item Value Reference Range Interpretation Comments Monocytes # (test code 0.6 See_Comment [Aut omated message] The = Monocytes #) system which generated this result tra nsmitted reference range : <=0.8. The reference r zachary was not used to int erpret this result as normal/abnormal . [facility] CenterWkpqobmVGVPWSFXAJ4001-24-98 08:18:00 Test Item Value Reference Range Interpretation Comments Eosinophils (test code = 2.6 See_Comment [A utomated message] The Eosinophils) system which ge nerated this result tra nsmitted reference range : <=4.0. The reference r zachary was not used to int erpret this result as normal/abnormal . [facility] CenterZksflhqTEYYZOBFQZ7893-77-26 08:18:00 Test Item Value Reference Range Interpretation Comments Basophils (test code = 0.1 See_Comment [Aut omated message] The Basophils) system which ge nerated this result tra nsmitted reference range : <=1.0. The reference r zachary was not used to int erpret this result as normal/abnormal . [facility] Cent[id number] 08:18:00 Test Item Value Reference Range Interpretation Comments Basophils # (test code 0.0 See_Comment [Aut omated message] The = Basophils #) system which generated this result tra nsmitted reference range : <=0.2. The reference r zachary was not used to int erpret this result as normal/abnormal . [facility] CenterYevoksdRYQSNXPQKQ4956-79-17 08:18:00 Test Item Value Reference Range Interpretation Comments Eosinophils # (test code 0.2 See_Comment [A utomated message] The = Eosinophils #) system [employer] generated this result tra nsmitted reference range : <=0.5. The reference r zachary was not used to int erpret this result as normal/abnormal . [facility] CenterBouzknjCDCFGOBMQH8216-33-18 08:18:00 Test Item Value Reference Range Interpretation Comments Monocytes (test code = Monocytes) 8.7 2.0-12.0 [facility] CenterJpubvxyEEUAISWPIJ0318-84-83 08:18:00 Test Item Value Reference Range Interpretation Comments RBC Morph (test code = Normal (12/31/17 3:18 RBC Morph) AM) [facility] CenterXiqicijWSROYPIGIP7783-99-11 08:18:00 Test Item Value Reference Range Interpretation Comments Large Plt (test code = Large Plt) [facility] [id number] 08:26:00Surgical Pathology Report Case: [id number] Authorizing Provider: Hood Crook MD Collected: 04/05/2017 1355 Ordering Location: [facility] Received: 04/05/2017 1604 Pathologist: Katiuska Monahan MD Specimen: Breast, Right, Right 6 o'clock breast calcification BREAST, RIGHT, 6O'CLOCK CALCIFICATIONS, STEREOTACTIC CORE BIOPSY: - HYALINIZED FIBROADENOMA ASSOCIATED WITH COARSE CALCIFICATIONS - SCLEROSING ADENOSIS - APOCRINE CYSTIC METAPLASIA - MICROCALCIFICATION ASSOCIATED WITHBENIGN BREAST DUCTS Signing Pathologist Direct Phone Line: [phone] signed by Katiuska Monahan MD on 04/07/2017 at 8:26 AMFaxitron of the blocks and multiple levels (20 levels) have been performed to see calcifications. Multiple coarse calcifications are seen associated with a hyalinized fibroadenoma. No atypia or carcinoma is identified in the sections examined.CG/AE/ew [id number] Questionable DCISRight 6:00 breast calcification The specimen is received in a formalin-filled container labeled with the patient's information and "right 6:00 breast calcifications" and consists of multiple yellow-white core biopsies ranging from 1 to 3 cm. Ink code: blue.The specimen is entirely submitted A1 through A3. CG/pl Performed.[facility], Department of Pathology, [address] [place] [address], [facility] [place] [address],
--- NOTE | 2022-12-12 15:43 | RAD REPORT ---
EXAM DESCRIPTION: Shoulder Right 2 View - 12/12/2022 3:31 pm CLINICAL HISTORY: PAIN COMPARISON: No comparisons TECHNIQUE: Internal and external rotation views of the right shoulder were obtained. FINDINGS: Radiopaque clips limits and ornament around the neck, evaluation of bony detail in the are as of superimposition. There is no fracture or dislocation. AC joint is normal in appearance. No acut e or suspicious findings. IMPRESSION: No acute osseous abnormality of the right shoulder.
--- NOTE | 2022-12-12 15:58 | EDPHYS ---
Physician Documentation [facility] Name: Harris Wild Age: 47 yrs Sex: Female : 1975 Arrival Date: 12/12/2022 Time: 14:46 Bed 3 Private MD: ED Physician Ash Edmonds HPI: 12/12 14:48 This 47 yrs old Black Female presents to ER via Unassigned with complaints of right rn shoulder pain. 14:48 The patient or guardian complains of decreased range of motion, pain. right shoulder. rn Onset: The symptoms/episode began/occurred just prior to arrival. Modifying factors: the symptoms are alleviated by nothing. The symptoms are aggravated by lifting weight, rotation of arm. Associated signs and symptoms: Pertinent negatives: abdominal pain, chest pain, diaphoresis, dyspnea, shortness of breath, tingling. Severity of symptoms: At their worst the symptoms were moderate, in the emergency department the symptoms have improved. The patient has not experienced similar symptoms in the past. The patient has not recently seen a physician. Pt reports was wearing her purse and a bag over her right shoulder, lifted arm to do something, no weight on distal arm at the time, heard something pop and now has pain in right shoulder/backside, and worse with ROM. . [employer]IDENT [employer] INSIGHTS: 14:55 LMP N/A - Hysterectomy cm9 Historical: - Allergies: 14:55 No Known Allergies; cm9 - Home Meds: 14:55 None [Active]; cm9 - PMHx: 14:55 Diabetes mellitus; cm9 - Immunization history:: Adult Immunizations up to date, Client reports receiving the 2nd dose of the Covid vaccine. - Social history:: Smoking status: Patient denies any tobacco usage or history of. Patient/guardian denies using alcohol, street drugs, IV drugs. - Family history:: not pertinent. - Hospitalizations: : No recent hospitalization is reported. ROS: 14:48 Constitutional: Negative for fever, chills, and weight loss, Neck: Negative for injury, rn pain, and swelling, Cardiovascular: Negative for chest pain, palpitations, and edema, Respiratory: Negative for shortness of breath, cough, wheezing, and pleuritic chest pain, Abdomen/GI: Negative for abdominal pain, nausea, vomiting, diarrhea, and constipation, Back: Negative for injury and pain, MS/Extremity: + right arm pain Skin: Negative for injury, rash, and discoloration, Neuro: Negative for headache, weakness, numbness, tingling, and seizure. Exam: 14:48 Constitutional: This is a well developed, well nourished patient who is awake, alert, rn and in no acute distress. Neck: NO swelling or midline tenderness Chest/axilla: Normal chest wall appearance and motion. Nontender with no deformity. Cardiovascular: Regular rate and rhythm. No pulse deficits. Respiratory: No increased work of breathing, no retractions or nasal flaring. Skin: Warm, dry MS/ Extremity: Pulses equal, no cyanosis. Neurovascular intact. Right arm in sling from EMS, mild pain with elevation and rotation of right shoulder. No swelling or ecchymosis. Neuro: Awake and alert, GCS 15 Vital Signs: 14:51 BP 165 / 95 LA Sitting; Pulse 73; Resp 16; Temp 98.5; Pulse Ox 100% on R/A; Weight cm9 81.65 kg; Height 5 ft. 6 in. ; Pain 6/10; 16:39 BP 146 / 90; Pulse 71; Resp 16; Pulse Ox 100% on R/A; cm9 14:51 Body Mass Index 29.05 (81.65 kg, 167.64 cm) cm9 14:51 Pain Scale: Adult cm9 MDM: 14:46 Patient medically screened. rn 15:55 Differential diagnosis: Anterior dislocation with fracture, Anterior dislocation rn without fracture, DJD, tendon injury, ligamentous injury, subluxation. Data reviewed: vital signs, nurses notes, radiologic studies, plain films, and as a result, I will discharge patient. Independent interpretation of the following test(s) in the Emergency Department X-Ray: My interpretation is Xray right shoulder images neg for fracture/dislocation per my interpretation. Counseling: I had a detailed discussion with the patient and/or guardian regarding: the historical points, exam findings, and any diagnostic results supporting the discharge/admit diagnosis, radiology results, the need for outpatient follow up, to return to the emergency department if symptoms worsen or persist or if there are any questions or concerns that arise at home. Response to treatment: the patient's symptoms have mildly improved after treatment, and as a result, I will discharge patient. Special discussion: I discussed with the patient/guardian in detail that at this point there is no indication for admission to the hospital. It is understood, however, that if the symptoms persist or worsen the patient needs to return immediately for re-evaluation. Further emergent ED testing is not indicated at this point in time. I discussed with the patient/guardian in detail the need to arrange with the PCP or specialist further outpatient testing, MRI, Based on the history and exam findings, there is no indication for further emergent testing or inpatient evaluation. I discussed with the patient/guardian the need to see the orthopedic surgeon for further evaluation of the symptoms. 12/12 14:47 Order name: XRAY Shoulder RIGHT 2 view; Complete Time: 15:47 rn 12/12 16:00 Order name: Sling; Complete Time: 16:37 rn Administered Medications: No medications were administered Disposition Summary: 12/12/22 15:57 Discharge Ordered Location: Home rn Problem: new rn Symptoms: have improved rn Condition: Stable rn Diagnosis - Other sprain of right shoulder joint rn Followup: rn - With: Braulio Akhtar MD - When: As needed - Reason: Recheck today's complaints, Re-evaluation by your physician Discharge Instructions: - Discharge Summary Sheet rn - Shoulder Sprain rn - How to Use a Sling rn Forms: - Medication Reconciliation Form rn - Thank You Letter rn - Antibiotic dietetic intern - Prescription Opioid Use rn Prescriptions: - Cyclobenzaprine 10 mg Oral Tablet - take 1 tablet by ORAL route every 8 hours As needed; 15 tablet; Refills: 0, rn Product Selection Permitted - Tramadol 50 mg Oral Tablet - take 1 tablet by ORAL route every 8 hours as needed; 12 tablet; Refills: 0, rn Product Selection Permitted Signatures: Dispatcher [employer] EDAsh Reeves MD MD rn McDuffie, Courtney, RN RN cm9
--- NOTE | 2022-12-12 15:58 | ER ---
Nurse's Notes [facility] Name: Harris Wild Age: 47 yrs Sex: Female : 1975 Arrival Date: 12/12/2022 Time: 14:46 Bed 3 Private MD: Diagnosis: Other sprain of right shoulder joint Presentation: 12/12 14:51 Chief complaint: Patient states: right shoulder pain after reaching above head, arrived cm9 with sling in place from EMS. Coronavirus screen: Vaccine status: Patient reports receiving the 2nd dose of the covid vaccine. At this time, the client does not indicate any symptoms associated with coronavirus-19. Ebola Screen: No symptoms or risks identified at this time. Initial Sepsis Screen: Does the patient meet any 2 criteria? No. Patient's initial sepsis screen is negative. Does the patient have a suspected source of infection? No. Patient's initial sepsis screen is negative. Risk Assessment: Do you want to hurt yourself or someone else? Patient reports no desire to harm self or others. Onset of symptoms was December 12, 2022. 14:51 Method Of Arrival: EMS: [facility] [place] [id number] 14:51 Acuity: OLIVERIO 4 cm9 Triage Assessment: 14:55 General: Appears uncomfortable, Behavior is cooperative. Pain: Complains of pain in cm9 right arm Pain currently is 6 out of 10 on a pain scale. Alleviated by medications. EENT:. Neuro: Level of Consciousness is awake, alert, obeys commands, Oriented to person, place, time, situation. Cardiovascular: Capillary refill < 3 seconds Patient's skin is warm and dry. Respiratory: Airway is patent Respiratory effort is even, unlabored. Musculoskeletal: Circulation, motion, and sensation intact. Capillary refill < 3 seconds, Range of motion: limited in right shoulder and right elbow Swelling present in right arm. 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 - Social history:: Smoking status: Patient denies any tobacco usage or history of. Patient/guardian denies using alcohol, street drugs, IV drugs. - Family history:: not pertinent. - Hospitalizations: : No recent hospitalization is reported. Screenin:58 [facility] ED Fall Risk Assessment (Adult) History of falling in the last 3 months, cm9 including since admission No falls in past 3 months (0 pts) Confusion or Disorientation No (0 pts) Intoxicated or Sedated No (0 pts) Impaired Gait No (0 pts) Mobility Assist Device Used No (0 pt) Altered Elimination No (0 pt) Score/Fall Risk Level 0 - 2 = Low Risk Oriented to surroundings, Maintained a safe environment, Educated pt \T\ family on fall prevention, incl call for assistance when getting out of bed, Assessed \T\ reinforced patient's understanding of fall precautions, Hourly rounding (assess needs \T\ fall precautionary measures) done. 14:58 Abuse screen: Denies threats or abuse. Nutritional screening: No deficits noted. cm9 Tuberculosis screening: No symptoms or risk factors identified. Assessment: 14:58 Reassessment: See triage assessment. cm9 Vital Signs: 14:51 BP 165 / 95 LA Sitting; Pulse 73; Resp 16; Temp 98.5; Pulse Ox 100% on R/A; Weight cm9 81.65 kg; Height 5 ft. 6 in. ; Pain 6/10; 16:39 BP 146 / 90; Pulse 71; Resp 16; Pulse Ox 100% on R/A; cm9 14:51 Body Mass Index 29.05 (81.65 kg, 167.64 cm) cm9 14:51 Pain Scale: Adult cm9 ED Course: 14:46 Patient arrived in ED. rn 14:46 Ash Edmonds MD is Attending Physician. rn 14:48 Racquel Cameron, ZULMA is Primary Nurse. nj1 14:54 Triage completed. cm9 14:55 Arm band placed on left wrist. cm9 14:58 Patient has correct armband on for positive identification. Fall risk band placed. Bed cm9 in low position. Call light in reach. Side rails up X 1. 15:33 XRAY Shoulder RIGHT 2 view In Process Unspecified. EDMS 15:57 Braulio Akhtar MD is Referral Physician. rn 16:37 No provider procedures requiring assistance completed. IV discontinued, intact, cm9 bleeding controlled, No redness/swelling at site. Administered Medications: No medications were administered Medication: 14:58 VIS not applicable for this client. cm9 Outcome: 15:57 Discharge ordered by . rn 16:37 Condition: good cm9 16:37 Discharge instructions given to patient, significant other, Instructed on discharge instructions, follow up and referral plans. sling application and use Demonstrated understanding of instructions, follow-up care, medications, sling application and use 16:40 Patient left the ED. cm9 Signatures: Dispatcher [employer] EDMS Ash Edmonds MD MD rn Jaco, Norma, RN RN nj1 Fatmata South RN RN cm9
[2022-12-12 17:40] VITALS: TEMP 98.5; O2SAT 100
[2022-12-12 17:42] VITALS: BP 146/90
== END 2022-12-12 16:40 | disposition home or self-care (01) ==
LOC: ER 14:46
DX: S43.491A Other sprain of right shoulder joint, initial encounter (principal)
CPT/HCPCS: 99283